=== PATIENT | male | born 1955 | race Caucasian/White ===

== ENCOUNTER 2018-12-14 08:06 | Emergency (ER) | payer MEDICARE, BC ==
[2018-12-14] MEDS ORDERED: Sodium Chloride 0.9% 10 ML Syringe FLUSH PRN (09:01)
[2018-12-14] MEDS ORDERED: Ondansetron 4 MG/2 ML SDV IVPUSH ONE (09:02)
--- NOTE | 2018-12-14 09:05 | EDM.PDOC ---
ED HPI GENERAL MEDICAL PROBLEM - General Chief Complaint: Gastrointestinal Problem Stated Complaint: FAINTING Time Seen by Provider: 12/14/18 08:53 Source of Information: Reports: Patient, RN Notes Reviewed History Limitations: Reports: No Limitations - History of Present Illness INITIAL COMMENTS - FREE TEXT/NARRATIVE: 63-year-old gentleman presents to the emergency department today complaint of nausea vomiting and diarrhea, he states is been ill for the last several days however last 24 hours he has gotten much worse with profuse watery diarrhea and vomiting. Denies any fevers no sick contacts no other symptoms - Related Data Allergies Allergy/AdvReac Type Severity Reaction Status Date / Time No Known Allergies Allergy Verified 12/14/18 08:38 Home Meds: Home Meds ALPRAZolam [Xanax] 0.25 mg PO BID PRN 02/17/15 [History] Metoprolol Tartrate [Lopressor] 25 mg PO BID 02/17/15 [History] amLODIPine Besylate/Benazepril [Amlodipine-Benazepril 5-20 MG] 1 tab PO DAILY [History] atorvaSTATin [Lipitor] 10 mg PO DAILY 02/17/15 [History] Past Medical History HEENT History: Reports: Impaired Vision Cardiovascular History: Reports: High Cholesterol, Hypertension Psychiatric History: Reports: Anxiety, Depression, Panic Attack, PTSD Endocrine/Metabolic History: Reports: Obesity/BMI 30+ - Past Surgical History Head Surgeries/Procedures: Reports: None Cardiovascular Surgical History: Reports: None Endocrine Surgical History: Reports: None Neurological Surgical History: Reports: None Musculoskeletal Surgical History: Reports: Knee Replacement, Other (See Below) Other Musculoskeletal Surgeries/Procedures:: right hand/wrist surgery Dermatological Surgical History: Reports: None Social & Family History - Tobacco Use Smoking Status *Q: Former Smoker Used Tobacco, but Quit: Yes Month/Year Tobacco Last Used: 1985 Second Hand Smoke Exposure: No - Caffeine Use Caffeine Use: Reports: Coffee, Soda - Recreational Drug Use Recreational Drug Use: No ED ROS GENERAL - Review of Systems Review Of Systems: See Below Constitutional: Reports: Weakness. Denies: Fever, Chills HEENT: Reports: No Symptoms Respiratory: Reports: No Symptoms (He is me) Cardiovascular: Reports: No Symptoms GI/Abdominal: Reports: Abdominal Pain, Diarrhea, Nausea, Vomiting : Reports: No Symptoms Musculoskeletal: Reports: No Symptoms Skin: Reports: No Symptoms Neurological: Reports: No Symptoms ED EXAM, GI/ABD - Physical Exam Exam: See Below Text/Narrative:: General: Male, not in any distress, alert and oriented x3 HEENT: head is atraumatic normocephalic, eyes pupils equal round reactive to light, sclera clear no conjunctivitis appreciated. Ears tympanic membranes clear and mera landmarks and light reflex are present bilaterally canals are clear. Nose no septal deviation, nares are clear, no blood present. Mouth mucosa is dry and pink no erythema or exudate noted in soft palate, tongue is midline uvula is midline, dentition is intact. Neck: Supple no thyromegaly no tracheal deviation. Nodes: Cervical nodes subclavicular nodes nontender no palpable lymphadenopathy noted. Lungs: clear to auscultation bilaterally with symmetrical respirations, no adventitious noise appreciated. CV: Regular rate and rhythm S1 and S2 appreciated no murmurs rubs or gallops noted. Abdomen: Soft, nontender, no palpable masses or organomegaly appreciated, no distention no guarding bowel sounds are present, . Neuro: GCS of 15 Skin: Warm and dry, intact Extremities: No lower extremity edema appreciated, pedal pulse is +2. Course - Vital Signs Last Recorded V/S: Last Vital Signs Temp 95.7 F 12/14/18 08:38 Pulse 60 12/14/18 10:13 Resp 16 12/14/18 10:13 BP 160/82 H 12/14/18 10:13 Pulse Ox 97 12/14/18 10:13 - Orders/Labs/Meds Orders: Active Orders 24 hr Category Date Time Status EKG Documentation Completion [RC] ASDIRECTED Care 12/14/18 09:02 Active Peripheral IV Care [RC] . DIRECTED Care 12/14/18 09:01 Active Lactated Ringers [Ringers, Lactated] 1,000 ml Med 12/14/18 09:15 Active IV ASDIRECTED Sodium Chloride 0.9% [Saline Flush] Med 12/14/18 09:01 Active 10 ml FLUSH ASDIRECTED PRN Peripheral IV Insertion Adult [OM.PC] Urgent Oth 12/14/18 09:01 Ordered EKG 12 Lead [EK] Stat Ther 12/14/18 09:02 Ordered Medication Orders Lactated Ringer's (Ringers, Lactated) 1,000 mls @ 999 mls/hr IV ASDIRECTED VILLA Last Admin: 12/14/18 09:19 Dose: 999 mls/hr Sodium Chloride (Saline Flush) 10 ml FLUSH ASDIRECTED PRN PRN Reason: Keep Vein Open Last Admin: 12/14/18 09:19 Dose: 10 ml Labs: Laboratory Tests 12/14/18 12/14/18 12/14/18 Range/Units 09:13 09:13 09:13 WBC 14.3 H (4.5-11.0) K/uL RBC 6.54 H (4.30-5.90) M/uL Hgb 18.6 H* (12.0-15.0) g/dL Hct 56.3 H (40.0-54.0) % MCV 86 (80-98) fL MCH 28 (27-31) pg MCHC 33 (32-36) % Plt Count 359 (150-400) K/uL Neut % (Auto) 89 H (36-66) % Lymph % (Auto) 7 L (24-44) % [place] % (Auto) 4 (2-6) % Eos % (Auto) 0 L (2-4) % Baso % (Auto) 0 (0-1) % Sodium 140 (140-148) mmol/L Potassium 3.8 (3.6-5.2) mmol/L Chloride 103 (100-108) mmol/L Carbon Dioxide 21 (21-32) mmol/L Anion Gap 15.6 H (5.0-14.0) mmol/L BUN 25 H (7-18) mg/dL Creatinine 2.8 H (0.8-1.3) mg/dL Est Cr Clr Drug Dosing 25.45 mL/min Estimated GFR (MDRD) 23 L (>60) Glucose 184 H (74-106) mg/dL Lactic Acid 3.9 H (0.4-2.0) mmol/L Calcium 9.8 (8.5-10.1) mg/dL Total Bilirubin 0.7 (0.2-1.0) mg/dL AST 11 L (15-37) U/L ALT 22 (12-78) U/L Alkaline Phosphatase 76 (46-116) U/L Total Protein 9.2 H (6.4-8.2) g/dL Albumin 4.5 (3.4-5.0) g/dL Globulin 4.7 H (2.3-3.5) g/dL Albumin/Globulin Ratio 1.0 L (1.2-2.2) Lipase 202 (73-393) U/L Urine Color Urine Appearance Urine pH (4.5-8.0) Ur Specific [place] (1.008-1.030) Urine Protein (NEGATIVE) mg/dL Urine Glucose (UA) (NEGATIVE) mg/dL Urine Ketones (NEGATIVE) mg/dL Urine Occult Blood (NEGATIVE) Urine Nitrite (NEGAITVE) Urine Bilirubin (NEGATIVE) Urine Urobilinogen (NORMAL) mg/dL Ur Leukocyte Esterase (NEGATIVE) Urine RBC (0-5) Urine WBC (0-5) Ur Epithelial Cells Amorphous Sediment Urine Bacteria Urine Mucus Urine Other 12/14/18 Range/Units 12:29 WBC (4.5-11.0) K/uL RBC (4.30-5.90) M/uL Hgb (12.0-15.0) g/dL Hct (40.0-54.0) % MCV (80-98) fL MCH (27-31) pg MCHC (32-36) % Plt Count (150-400) K/uL Neut % (Auto) (36-66) % Lymph % (Auto) (24-44) % [place] % (Auto) (2-6) % Eos % (Auto) (2-4) % Baso % (Auto) (0-1) % Sodium (140-148) mmol/L Potassium (3.6-5.2) mmol/L Chloride (100-108) mmol/L Carbon Dioxide (21-32) mmol/L Anion Gap (5.0-14.0) mmol/L BUN (7-18) mg/dL Creatinine (0.8-1.3) mg/dL Est Cr Clr Drug Dosing mL/min Estimated GFR (MDRD) (>60) Glucose (74-106) mg/dL Lactic Acid (0.4-2.0) mmol/L Calcium (8.5-10.1) mg/dL Total Bilirubin (0.2-1.0) mg/dL AST (15-37) U/L ALT (12-78) U/L Alkaline Phosphatase (46-116) U/L Total Protein (6.4-8.2) g/dL Albumin (3.4-5.0) g/dL Globulin (2.3-3.5) g/dL Albumin/Globulin Ratio (1.2-2.2) Lipase (73-393) U/L Urine Color Yellow Urine Appearance Cloudy Urine pH 5.0 (4.5-8.0) Ur Specific [place] 1.020 (1.008-1.030) Urine Protein 100 H (NEGATIVE) mg/dL Urine Glucose (UA) Normal (NEGATIVE) mg/dL Urine Ketones Negative (NEGATIVE) mg/dL Urine Occult Blood Moderate (NEGATIVE) Urine Nitrite Negative (NEGAITVE) Urine Bilirubin Negative (NEGATIVE) Urine Urobilinogen Normal (NORMAL) mg/dL Ur Leukocyte Esterase Negative (NEGATIVE) Urine RBC 5-10 H (0-5) Urine WBC 0-5 (0-5) Ur Epithelial Cells Few Amorphous Sediment Few Urine Bacteria Moderate Urine Mucus Not seen Urine Other See note Meds: Medications Generic Name Dose Route Start Last Admin Trade Name Freq PRN Reason Stop Dose Admin Lactated Ringer's 1,000 mls @ 999 mls/hr 12/14/18 09:15 12/14/18 09:19 Ringers, Lactated IV 999 mls/hr ASDIRECTED VILLA Administration Sodium Chloride 10 ml 12/14/18 09:01 12/14/18 09:19 Saline Flush FLUSH 10 ml ASDIRECTED PRN Administration Keep Vein Open Discontinued Medications Generic Name Dose Route Start Last Admin Trade Name Freq PRN Reason Stop Dose Admin Lactated Ringer's 1,000 mls @ 999 mls/hr 12/14/18 10:03 12/14/18 10:18 Ringers, Lactated IV 12/14/18 11:03 999 mls/hr BOLUS ONE Administration Lactated Ringer's 1,000 mls @ 999 mls/hr 12/14/18 11:21 12/14/18 11:23 Ringers, Lactated IV 12/14/18 12:21 999 mls/hr BOLUS ONE Administration Ketorolac Tromethamine 60 mg 12/14/18 12:40 Toradol IM 12/14/18 12:41 ONETIME ONE Ondansetron HCl 4 mg 12/14/18 09:02 12/14/18 09:20 Zofran IVPUSH 12/14/18 09:03 4 mg ONETIME ONE Administration Departure - Departure Time of Disposition: 12:43 Disposition: Home, Self-Care 01 Condition: Fair Clinical Impression: Gastroenteritis - Discharge Information Referrals: PCP,None [Primary Care Provider] - Forms: ED Department Discharge Additional Instructions: Continue to push fluids, recommend a bland diet, use Zofran as needed for nausea and vomiting symptoms, please follow-up with your primary care provider next 2-3 days for reevaluation, call return to the emergency department worsening of symptoms - My Orders Last 24 Hours: My Active Orders 12/14/18 09:01 Peripheral IV Care [RC] . DIRECTED Sodium Chloride 0.9% [Saline Flush] 10 ml FLUSH ASDIRECTED PRN Peripheral IV Insertion Adult [OM.PC] Urgent 12/14/18 09:02 EKG Documentation Completion [RC] ASDIRECTED EKG 12 Lead [EK] Stat 12/14/18 09:15 Lactated Ringers [Ringers, Lactated] 1,000 ml IV ASDIRECTED - Assessment/Plan Last 24 Hours: My Active Orders 12/14/18 09:01 Peripheral IV Care [RC] . DIRECTED Sodium Chloride 0.9% [Saline Flush] 10 ml FLUSH ASDIRECTED PRN Peripheral IV Insertion Adult [OM.PC] Urgent 12/14/18 09:02 EKG Documentation Completion [RC] ASDIRECTED EKG 12 Lead [EK] Stat 12/14/18 09:15 Lactated Ringers [Ringers, Lactated] 1,000 ml IV ASDIRECTED Plan: Assessment Acuity = acute Site and laterality = gastroenteritis Etiology = probable viral in nature Manifestations = nausea, vomiting, diarrhea, dehydration Location of injury = Home Lab values = WBC elevated at 14.3 consistent with leukocytosis hemoglobin elevated 18.6 probably related to concentration creatinine elevated 2.8 consistent with acute renal failure stage GIV lactic acid elevated 3.9 consistent with dehydration process urinalysis reveals specific gravity 1.02 consistent with intravascular volume depletion Plan He had good improvement with combination Zofran and 3 L of fluid before he was able to urinate, I discharged home with Zofran 4 mg ODT 1 tab by mouth 3 times a day when necessary total #10 he will follow-up with his primary care in the next 3-5 days for reevaluation This note was dictated using [employer] voice recognition software please call with any questions on syntax or grammar.
[2018-12-14] MEDS ORDERED: Lactated Ringers 1,000 ML IV SCH (09:15)
[2018-12-14] MEDS ORDERED: Lactated Ringers 1,000 ML IV ONE ×2 (10:03→11:21)
[2018-12-14 10:14] VITALS: BP 160/82
[2018-12-14] MEDS ORDERED: Ketorolac 60 MG/2 ML SDV IM ONE (12:40)
== END 2018-12-14 12:58 | disposition home or self-care (01) ==
LOC: JP.ED 08:06
DX: K52.9 Noninfective gastroenteritis and colitis, unspecified (principal); I10 Essential (primary) hypertension; E78.00 Pure hypercholesterolemia, unspecified; F41.9 Anxiety disorder, unspecified; F32.9 Major depressive disorder, single episode, unspecified; Z87.891 Personal history of nicotine dependence; Z79.899 Other long term (current) drug therapy
CPT/HCPCS: 36415; 80053; 81001; 83605; 83690; 85025; 93005; 96361; 96372; 96374; 99284; J1885; J2405; J7120

== ENCOUNTER 2024-01-10 08:00 | Day surgery (SDC) | payer MEDICARE ==
[~2024-01-10 08:00] MED LIST: Dexamethasone 4 MG/ML SDV ONE; Glycopyrrolate 0.2 MG/ML 5 ML MDV ONE; Neostigmine Methylsulfate 10 MG/10 ML MDV ONE; Ondansetron 4 MG/2 ML SDV ONE; Propofol 200 MG/20 ML SDV ONE; Rocuronium 50 MG/5 ML Vial ONE; Succinylcholine 200 MG/10 ML MDV ONE; fentaNYL 250 MCG/5 ML SDV ONE
[2024-01-10] MEDS: Acetaminophen 500 MG Tab PO ONE (08:29)
[2024-01-10] MEDS: Lactated Ringers 1,000 ML IV SCH (08:59)
[2024-01-10] MEDS: ceFAZolin 2 GM in Premix Bag 1 BAG IV ONE (09:00)
[2024-01-10] MEDS ORDERED: ePHEDrine 50 MG/ML SDV ONE (09:23)
[2024-01-10] MEDS: Bupivacaine 0.5%/EPINEPHrine 1:200,000 50 ML MDV ONE (09:45)
[2024-01-10] MEDS ORDERED: Lactated Ringers 1,000 ML ONE (10:24)
[2024-01-10] MEDS: Acetaminophen/HYDROcodone 325-5 MG Tab PO PRN (12:37)
[2024-01-10 12:54] VITALS: PULSE 50
[2024-01-10 13:11] VITALS: BP 164/91
== END 2024-01-10 13:30 | disposition home or self-care (01) ==
LOC: JP.SDS 08:00
PROVIDERS: ATTEND Student in an Organized Health Care Education/Training Program
DX: K42.0 Umbilical hernia with obstruction, without gangrene (principal); I10 Essential (primary) hypertension
CPT/HCPCS: 49592; A9270; C1713; C1781; J0330; J0690; J1100; J2405; J2704; J2710; J3010; J3490; J7120